=== PATIENT | male | born 1980 | race Caucasian/White ===

== ENCOUNTER 2024-06-07 12:56 | Emergency (ER) | payer BC, SELFPAY ==
[2024-06-07 13:08] VITALS: BP 156/102
--- NOTE | 2024-06-07 14:20 | ED.GENMED ---
History of Present Illness
General
Chief Complaint: Skin Surface Trauma
Time Seen by Provider: 06/07/24 13:17
History of Present Illness
History of Present Illness:
44-year-old male presents the emergency department for evaluation of a left hand laceration sustained after mechanical fall while hiking. Bleeding is controlled. Last tetanus unknown
Review of Systems
Review of Systems
Allergies reviewed?: Yes
All Other Systems: ROS reviewed and negative except as documented in HPI and ROS
Phy Exam
Physical Exam
Physical Exam:
GEN: Well appearing, NAD, WDWN
HEENT: Oral mucosa moist, no scleral icterus
Cardiac: Regular rate
Lung: No respiratory distress, no tachypnea
MSK: No gross deformity or injuries
Skin: Good color, no pallor or jaundice. 2.5 cm V-shaped laceration to the palmar aspect of the left hand just proximal to the fourth and fifth MCP joints. MCP joint range of motion is normal. Visible tendon structure at the base of wound with no
evidence for injury, no foreign bodies
Neuro: AO x3, moves all extremities freely
Psych: Calm, cooperative
Course
Orders/Labs/Results
Orders:
Orders
06/07/24 14:20
Tetanus/Diphth/Acelpertussis [Adacel] 0.5 ml IM .ONCE ONE
Vital Signs
Initial and Last Documented VS:
Initial Vital Signs
Temp Pulse Resp BP Pulse Ox
97.8 F 94 17 156/102 99
06/07/24 13:08 06/07/24 13:08 06/07/24 13:08 06/07/24 13:08 06/07/24 13:08
Last Documented Vital Signs
Temp Pulse Resp BP Pulse Ox
97.8 F 94 17 156/102 99
06/07/24 13:08 06/07/24 13:08 06/07/24 13:08 06/07/24 13:08 06/07/24 13:08
Procedures
Laceration Closure
Left Hand:
Status of Wound: clean
Size of Wound in cm: 2.5
Description of Wound Edges: ragged
Anesthesia: 1% Lidocaine
Wound exploration: explored to base- no FB and no tendon involvement
Type of Closure: single layer closure
Skin Closure Material: 5-0 nylon
Number of sutures: 8
MDM/Problems Addressed
MDM/Problems Addressed:
No signs of bony injury or tendon laceration. Wound closed the bedside and tetanus updated
*Critical Care Note
Total Time (30-74mins, 75-104mins- exclusive of procedures): Not Applicable
ED Attending Note
-
Portions of this chart may have been created with voice recognition software.� Occasional wrong word or��sound alike� substitutions may have occurred due to the inherent limitations of voice recognition software.
Discharge Plan
Departure
Patient Disposition: Home (Routine Discharge)
Date of Disposition: 06/07/24
Time of Disposition: 14:20
Patient with high blood pressure during this ER visit?: No
Discharge Problem:
Laceration of hand, left
Instructions: Laceration Repair With Stitches (DC)
Activity Restrictions/Additional Instructions:
Keep wound dry for the next 24 hours then he may wash gently with soap and water. Keep covered every day. No caring heavy objects with the left hand. Follow-up with urgent care or your primary care doctor in 10 days for suture removal
Interventions
Interventions:
*Risk Screen - Suicide Last Done: 06/07/24 13:09
*General Assessment Last Done: 06/07/24 13:09
*Neglect/Abuse Screening Last Done: 06/07/24 13:09
*ED COVID-19 Vaccine History Last Done: 06/07/24 13:09
*Nursing Disposition Last Done: 06/07/24 15:12
ED-Skin Assessment Last Done: 06/07/24 13:46
Discharge Date and Time
Discharge Date/Time: 06/07/24 15:13
Print Language: HUNGARIAN
[2024-06-07] MEDS: ADACEL 0.5 ML IM (14:43)
== END 2024-06-07 15:13 | disposition home or self-care (01) ==
LOC: EMR 12:56
PROVIDERS: EMERGENCY PHYSICIAN Emergency Medicine
DX: S61.412A Laceration without foreign body of left hand, initial encounter (principal); W19.XXXA Unspecified fall, initial encounter; Y93.01 Activity, walking, marching and hiking; Z23 Encounter for immunization
CPT/HCPCS: 12001; 90471; 99282; 90715